=== PATIENT | male | born 1960 | race African-American/Black ===

== ENCOUNTER 2023-03-06 16:53 | Emergency (ER) | payer OTHER, SELFPAY ==
[2023-03-06] VITALS (13 sets, daily range): BP systolic 124–130; BP diastolic 79–90; PULSE 78–89; RESP 17–27; O2SAT 96–100
--- NOTE | ~2023-03-06 | CT_ITS ---
EXAMINATION: CT brain wo con DATE: 03/06/2023 19:53 INDICATION: Headache and right eye pain . TECHNIQUE: Computed tomography (CT) of the head was performed without intravenous contrast. The mA wa s adjusted according to patient size. Iterative reconstruction technique was employed. The dose-lengt h product was 605.33 mGy-cm. COMPARISON: None. FINDINGS: No acute intracranial hemorrhage or extra-axial fluid collection. No hydrocephalus, mass, or herniation. No acute ischemic infarct. Unremarkable dural venous sinus attenuation. No acute osseous abnormality. The aerated spaces are clear. Extensive encephalomalacia involving the left temporal, parietal, and occipital lobes. A smaller, but still prominent region of encephalomalacia is present in the right hemisphere, predominantly affecti ng the right parietal lobe. IMPRESSION: No acute intracranial process. Reviewed, dictated and finalized at location K.
--- NOTE | 2023-03-06 19:24 | PC.NURSE ---
This RN assumed care of patient.
[2023-03-06] MEDS: ACETAMINOPHEN 500 MG TABLET 1000 MG PO (19:54)
--- NOTE | 2023-03-06 20:02 | ED.GENADULT ---
HPI - General Adult General Chief complaint: Unspecified Stated complaint: couldn't open eyes this morning Time Seen by Provider: 03/06/23 19:03 History of Present Illness HPI narrative: This is a 62-year-old male, with past history of strokes x4, who presents to the emergency department with multiple complaints today. He is primarily concerned with right-sided facial pain beginning this morning. He describes it as sharp and burning, described as moderate. He also complains of posterior headache and left hip pain. Patient states he noted the pain with walking this morning and it seems to be aggravated by deep breathing. Related Data Allergies Allergy/AdvReac Type Severity Reaction Status Date / Time No Known Allergies Allergy Verified 03/06/23 17:00 Review of Systems Review of Systems: CONSTITUTIONAL: Denies fever, chills, or sweats. EYES: Denies visual changes, redness, or discharge. ENT: Right-sided facial pain denies rhinorrhea, congestion, sore throat, or otalgia. CARDIOVASCULAR: Denies chest pain, palpitations, or edema. RESPIRATORY: Denies cough or dyspnea. GASTROINTESTINAL: Denies abdominal pain, nausea, vomiting, or diarrhea. GENITOURINARY: Denies dysuria or hematuria. SKIN: Denies rash or itching. MUSCULOSKELETAL: Denies back pain, joint pain, or myalgia. NEUROLOGIC: Headache denies numbness, dizziness, or weakness. PSYCHIATRIC: Denies anxiety or depression. PMFSH Past Medical History Medical History (Updated 03/07/23 @ 03:27 by Josse Albert MD) CVA (cerebral vascular accident) Surgical History Surgical History (Updated 03/06/23 @ 20:04 by Josse Albert MD) No significant past surgical history Social History Social History (Updated 03/06/23 @ 20:04 by Josse Albert MD) Smoking status: Never smoker Alcohol intake: never Substance use: never Exam Narrative: GENERAL: Well-developed, well-nourished, and in no acute distress. HEAD: Normocephalic, atraumatic. EYES: PERRLA and EOMI. ENT: Mild tenderness to palpation over the right maxilla without swelling or erythema nares clear, no rhinorrhea or epistaxis. Mucous membranes moist. Oropharynx without tonsillar hypertrophy exudate or other lesions. Bilateral TMs pearly oliveira nonbulging NECK: Supple. Mild right anterior cervical lymphadenopathy and tenderness No masses. No carotid bruits or JVD CHEST: Clear to auscultation. No respiratory distress. No wheezes rales or rhonchi HEART: Regular rate and rhythm. No murmur heard. Normal peripheral pulses. ABDOMEN: Soft, nontender, nondistended, normal active bowel sounds. EXTREMITIES: Normal range of motion. No edema. SKIN: Warm, dry, no rash. NEURO: No focal deficits. Alert and oriented x3. Strength 5 -/5 on extension at the left hip. Strength 5/5 in all other extremities. Sensation intact bilaterally. PSYCH: Normal mood and affect. Course Course Emergency Course: 20:55 - CT head not concerning for acute intracranial process. CBC demonstrates mild anemia with hemoglobin of 12.6 but is otherwise unremarkable. Chemistries unremarkable. CK pending. I suspect the patient's pain is related to sinusitis. I recommended primary care follow-up. Discussed return and emergency precautions including signs/symptoms of meningitis. The patient voiced understanding and is comfortable with plan. All questions answered to his satisfaction. Vital Signs Vital signs: Vital Signs Pulse Rate 89 03/06/23 16:56 Respiratory Rate 18 03/06/23 16:56 Blood Pressure 128/90 03/06/23 16:56 Pulse Oximetry 98 03/06/23 16:56 Oxygen Delivery Room Air 03/06/23 16:56 Pulse Rate 78 03/06/23 19:01 Respiratory Rate 24 H 03/06/23 19:01 Blood Pressure 130/84 03/06/23 19:01 Pulse Oximetry 98 03/06/23 19:01 Oxygen Delivery Room Air 03/06/23 16:56 Medical Decision Making [facility] Narrative Medical decision making narrative: Plan: Imaging, pain control, labs, taj
[2023-03-06 20:31] LABS: Basophils Absolute Auto 0.1 K/mm3 (0.0-0.1); Basophils Percent Auto 1.2 % (0.2-1.2); Eosinophils Absolute Auto 0.3 K/mm3 (0-0.3); Eosinophils Percent Auto 2.7 % (0-4.4); Hematocrit 40.2 % (42.0-52.0); Hemoglobin 12.6 g/dL (14.0-18.0); Immature Granulocyte Absolute 0.05 K/mm3 (0.00-0.031); Immature Granulocyte Percent A 0.5 % (0-0.5); Lymphocytes Absolute Auto 2.51 K/mm3 (0.9-3.2); Lymphocytes Percent Auto 26.5 % (18.3-44.2); Mean Corpuscular HGB Conc 31.3 g/dl (32-36); Mean Corpuscular Hemoglobin 29.9 pg (26-34); Mean Corpuscular Volume 95.3 fl (80-100); Mean Platelet Volume 8.9 fl (7.4-10.4); Monocytes Absolute Auto 0.9 K/mm3 (0.1-0.6); Monocytes Percent Auto 9.6 % (2.6-8.5); Neutrophils Absolute Auto 5.6 K/mm3 (1.3-6.7); Neutrophils Percent Auto 59.5 % (45.5-73.1); Platelet Count Result 323 k/mm3 (150-375); Red Blood Count 4.22 M/mm3 (4.6-6.20); Red Cell Distribution Width 12.1 % (11.5-14.5); White Blood Count 9.5 K/mm3 (4.5-10.0)
[2023-03-06 20:40] LABS: Alanine Aminotransferase 19 U/L (6-50); Albumin Level 4.2 g/dL (3.5-5.1); Alkaline Phosphatase 101 U/L (38-126); Anion Gap 4 mmol/L (8-16); Aspartate Amino Transferase 22 U/L (17-59); Bilirubin,Total 0.5 mg/dL (0.2-1.3); Blood Urea Nitrogen 10 mg/dL (9-20); Calcium 9.1 mg/dL (8.4-10.2); Carbon Dioxide 29 mmol/L (22-30); Chloride 105 mmol/L (98-107); Estimated CRCL calculation 63 ml/min; Estimated Glomerular Filt Rate > 60; Glucose 94 mg/dL (65-110); Potassium 4.1 mmol/L (3.4-5.0); Sodium 138 mmol/L (137-145)
[2023-03-06 21:04] LABS: Creatine Kinase 132 U/L (55-170)
== END 2023-03-06 21:28 | disposition home or self-care (01) ==
PROVIDERS: Emergency Provider Preventive Medicine Aerospace Medicine
DX: J32.0 Chronic maxillary sinusitis (principal); R51.9 Headache, unspecified; Z86.73 Personal history of transient ischemic attack (TIA), and cerebral infarction without residual deficits
CPT/HCPCS: 36415; 70450; 80053; 82550; 85025; 99284; A9270